=== PATIENT | female | born 1965 | race Caucasian/White ===

== ENCOUNTER 2019-11-23 19:22 | Inpatient (IN) | payer OTHER ==
[~2019-11-23] VITALS: Ht 165.1 cm; Wt 101.9 kg
[2019-11-23] MEDS ORDERED: WARF10 PO (19:47)
[2019-11-23] MEDS ORDERED: WARF1 PO (19:48)
[2019-11-23 20:20] LABS: BASOPHILS ABSOLUTE AUTO 0.03 K/mm3 (0.00-0.23); BASOPHILS PERCENT AUTO 0 % (0-2); EOSINOPHILS PERCENT AUTO 3 % (0-6); Hematocrit 36.6 % (33.0-51.0); Hemoglobin 12.1 g/dL (11.5-16.0); IMMATURE GRAN ABSOLUTE AUTO 0.02 K/mm3 (0.00-0.10); IMMATURE GRAN PERCENT AUTO 0 % (0-1); LYMPHOCYTES ABSOLUTE AUTO 1.46 K/mm3 (0.84-5.20); LYMPHOCYTES PERCENT AUTO 19 % (21-46); MONOCYTES ABSOLUTE AUTO 0.37 K/mm3 (0.16-1.47); MONOCYTES PERCENT AUTO 5 % (4-13); Mean Corpuscular HGB 28.4 pg (26.0-34.0); Mean Corpuscular HGB Conc 33.1 g/dL (31.5-36.5); Mean Corpuscular Volume 86 fL (80-100); Mean Platelet Volume 11.6 fL (9.1-12.4); NEUTROPHILS ABSOLUTE AUTO 5.48 K/mm3 (1.96-9.15); NEUTROPHILS PERCENT AUTO 73 % (41-73); Platelet Count 240 K/mm3 (150-400); RDW Coefficient Variation 13.3 % (11.7-14.2); RDW Standard Deviation 42.5 fL (35.1-46.3); Red Blood Cell Count 4.26 M/mm3 (3.80-5.20); White Blood Cell Count 7.56 K/mm3 (4.00-11.30)
[2019-11-23 20:42] LABS: Alanine Aminotransfer (ALT/SGP 21 U/L (12-78); Albumin, Blood 3.1 g/dL (3.4-5.0); Albumin/Globulin Ratio 0.6 (0.8-1.8); Alk Phos 60 U/L (50-136); Anion Gap 8 mmol/L (6-16); Aspartate Aminotrans (AST/SGOT 18 U/L (12-37); Bilirubin, Total 0.5 mg/dL (0.1-1.0); Blood Urea Nitrogen 17 mg/dL (8-24); Bun/Creatinine Ratio 22.3 (12.0-20.0); CO2, Blood 23 mmol/L (21-32); Calcium, Blood 9.5 mg/dL (8.5-10.1); Chloride, Blood 108 mmol/L (98-108); Creatinine, Blood 0.76 mg/dL (0.40-1.00); Globulin, Blood 5.2 g/dL (2.2-4.0); Glomerular Filtration Rate >60 (60-); Glucose, Blood 117 mg/dL (70-99); Potassium, Blood 3.9 mmol/L (3.5-5.5); Sodium, Blood 139 mmol/L (136-145); Total Protein, Blood 8.3 g/dL (6.4-8.2)
[2019-11-23 21:54] LABS: International Normalized Ratio 5.8; Prothrombin Time Results 56.2 Sec (9.7-11.5)
--- NOTE | 2019-11-24 00:31 | NUR ---
0010 PT ADMITTED TO ROOM 332 PER CART FROM ER; PT ASSISTED INTO BED VIA SLIDER SHEET X 4 ASSIST; PHOTO CONSENT OBTAINED WITH PICTURE TAKEN RIGHT KNEE.
--- NOTE | 2019-11-24 04:08 | NUR ---
SHIFT SUMMARY: 54 Y/O FEMALE RESTED COMFORTABLY AFTER RECEIVING DILAUDID 1MG IVP FOR RIGHT KNEE PATIENT; PT HAS PENDING ORTHO CONSULT TODAY VIA DR EDY BRISCOE REGARDING HEMATOMA; PT HAS AM LABS SCHEDULED FOR REPEAT PT/INR LEVELS; DENIES CHEST PAIN OR NAUSEA; BED LOW POSITION WITH CALL LIGHT AT SIDE.
[2019-11-24 06:09] LABS: International Normalized Ratio 5.56
--- NOTE | 2019-11-24 17:28 | NUR ---
SHIFT SUMMARY PT IS AOX4, PT IS VERY PAINFUL TODAY, AND I MEDICATED HER WITH THE DILAUDID 0.5MG. PT STATED THAT 1MG OF DILAUDID MADE HER FEEL BAD AND WEIRD. PT C/O OF NAUSEA THIS MORNING, AND MEDICATED HER ZOFRAN; PT TOLERATED WELL. NO C/O SOB OR CP; BED IS IN THE LOWEST POSITION, CALL LIGHTS WITHIN REACH, AND WILL CONTINUE TO MONITOR UNTIL THE NEXT SHIFT.
--- NOTE | 2019-11-25 04:28 | NUR ---
SHIFT SUMMARY ASSUMED CARE OF PT AT 1900. PT IS A/OX4, DENIES N/T IN EXTREMITES. HEART SOUNDS REGULAR, LUNG SOUNDS CLEAR, DENIES CP/SOB. PT HAS BEEN CONTINENT T/O THE NIGHT. PT HAS BEEN C/O PAIN IN HER R KNEE. THE KNEE IS SWOLLEN, WARM TO TOUCH AND PER PERIPHERAL PULSE IS WEAK. PT REQUEST PAIN MEDICATION Q2 UNTIL SHE FELL ASLEEP. PT WAS CONCERNED ABOUT TALKING OXYCODONE FOR PAIN DUE TO HAVE ADDICTIVE PROPERTIES. PT WAS EDUCATED AND AGREED TO TAKE THEM TO COVER HER PAIN LONGER, THIS WAS THEN PT WAS ABLE TO SLEEP. PT IS VERY UPSET ABOUT BEING HERE IN THE HOSPITAL SAYING THAT SHE WISHED SHE WAS HOME. CALL LIGHT IN REACH, BED IN LOWEST POSTION.
[2019-11-25 08:14] LABS: International Normalized Ratio 3.83
--- NOTE | 2019-11-25 12:10 | NUR ---
OXYCODONE & MILK OF MAG ADMIN ORIGINAL DOSAGE NOT SUBMITTED. ADMIN TIME BACKTIMED IN EMAR.
--- NOTE | 2019-11-25 12:14 | NUR ---
UNCONTROLLED PAIN. PT EXPERIENCING UNCONTROLLED PAIN FROM R KNEE HEMATOMA. PT PREVIOUSLY MEDICATED PER EMAR, BUT IN SIGNIFICANT PAIN AFTER TOILETING. PT MOANING AND CRYING IN ROOM. ICE REAPPLIED TO KNEE. DR. BENSON CALLED & NOTIFIED. DR. BENSON INSTRUCTED TO CONTAL ORTHO SYSTEM SPECIALIST. MESSAGE LEFT WITH ANSWERING SERVICE FOR DR. FLORES WHO IS SYSTEM SPECIALIST TODAY. AWAITNG CALL BACK.
--- NOTE | 2019-11-25 12:22 | NUR ---
INFOR FORWARDED TO DR. RACHNA FLORES CALLED BACK AND IS FORWARDING INFO ABOUT PT UNCONTROLLED PAIN TO DR. BRISCOE. DR. BENSON NOTIFIED OF PT UNCONTROLLED PAIN. PT CONTINUES TO MOAN IN ROOM, STATING "I CAN'T TAKE THIS FOR MUCH LONGER"
--- NOTE | 2019-11-25 13:00 | NUR ---
PULSES INTACT THIS RN CONCERNED ABOUT BLOOD FLOW TO R LEG DUE TO SWELLING FROM R KNEE. PEDAL PULSES FELT BY EZEKIEL GARCIA RN. TIBIAL PULSES FELT AND HEARD IN DOPPLER. CAP REFIL INTACT. FEET COOL BILATERALLY, PT HAS NO SOCKS ON.
--- NOTE | 2019-11-25 13:37 | NUR ---
PAIN IMPROVED PT STATES HER PAIN HAS IMPROVED AFTER LYING DOWN FOR APPROX AN HOUR AFTER TOILETING. PT GOT UP TO TOILET EARLIER IN THE SHIFT, TRIGGERING HER PAIN TO INCREASE SIGNIFICANTLY. PT GIVE PAIN MEDS AT THAT TIME. ICE APPLICATION IN USE WITH BREAKS INBETWEEN. PT HAS LEG ELEVATED ON PILLOWS. SLEEPING. NO PAIN MEDS ADMINISTERED SINCE EVENT. PT DOZING OFF, BUT ARROUSABLE TO VERBAL STIMULI. AWAITING INSTRUCTIONS FROM DR. BRISCOE. PULSES IN FEET INTACT. CAP REFIL GOOD. WARM BLANKETS APPLIED TO PT FOR COMFORT.
--- NOTE | 2019-11-25 15:00 | NUR ---
DR. BRISCOE CALLED BACK INSTRUCTED TO TRY A POLAR PACK FOR COOL APPLICATION INSTEAD OF ICE AND TO HELP WITH PT COMFORT. STATES SHE WILL BE IN TO SEE PT A LITTLE LATER TODAY TO EVALUATE PT LEG.
--- NOTE | 2019-11-25 17:45 | NUR ---
SHIFT SUMMARY SEE PREVIOUS NOTES. PT EDUCATED ON NOT AMBULATING UNTIL HER KNEE STARTS TO DECREASE IN SWELLING IT WAS LIKELY THE CAUSE OF HER SIGNIFICANT DISCOMFORT. POLAR PACK IN PLACE WITH BARRIER ON SKIN. PT STATES PAIN IS MORE MANAGED AND SKIN FEELS LESS TIGHT WITH THE USE OF THIS. DR. BRISCOE IN TO SEE PT THIS AFTERNOON AND PLEASED WITH RESULTS OF POLAR PACK. 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 PT REQUIRED LESS PAIN MEDICATION THIS AFTERNOON ONCE POLAR PACK WAS APPLIED. VS REVIEWED. NO OTHER CHANGES IN ASSESSMENT AT THIS TIME.
[2019-11-26 04:39] LABS: Hematocrit 34.6 % (33.0-51.0); Mean Corpuscular HGB 27.9 pg (26.0-34.0); Mean Corpuscular HGB Conc 31.8 g/dL (31.5-36.5); Mean Corpuscular Volume 88 fL (80-100); Mean Platelet Volume 11.8 fL (9.1-12.4); Platelet Count 240 K/mm3 (150-400); RDW Coefficient Variation 13.2 % (11.7-14.2); Red Blood Cell Count 3.94 M/mm3 (3.80-5.20); White Blood Cell Count 8.47 K/mm3 (4.00-11.30)
[2019-11-26 04:52] LABS: International Normalized Ratio 2.21; Prothrombin Time Results 22.6 Sec (9.7-11.5)
--- NOTE | 2019-11-26 05:28 | NUR ---
SUMMARY PT HAD SOME EPISODES OF INCREASED KNEE PAIN. PT TX PER EMAR W/ GOOD EFFECT. PT SHOWERED THIS SHIFT AND WALKED FLOOR FOR SHORT PERIOD. PT CURRENTLY AWAKE AND NO DISTRESS. CALL LIGHT IN REACH.
[2019-11-26] MEDS ORDERED: OXAYDO5 MG PO (14:01)
--- NOTE | 2019-11-26 15:07 | NUR ---
DISCHARGED PT DISCHARGED AT 1505. PT PAIN LEVEL AND SWELLING OF R KNEE IMPROVED T/O SHIFT. PT TOLERATED AMBULATION TO BATHROOM. NEW PATIENT PACKETS SENT WITH PT AND INSTRUCTIONS ON HOW TO FOLLOW UP DISCUSSED. NEW MED, MED CHANGES, AND FOLLOW UP INSTRUCTIONS DISCUSSED WITH PT. PT BELONGINGS FROM SECURITY GIVEN BACK TO HER. PT EDUCATED ON THE SIGNS AND RISKS OF CONSITIPATION AND NARCOTICS. HARD SCRIPT SENT WITH PT FOR OXYCODONE. TAXI CALLED FOR PT AND DC VOLUNTEER ESCORTED PT OUT OF BUILDING. PT SENT WITH POLAR PACK AND INSTRUCTED ON ITS USE. PT DENIED NEED FOR FURTHER INSTRUCTION PRIOR TO DC.
== END 2019-11-26 15:06 | disposition home or self-care (01) | DRG 605 ==
LOC: ER 19:22 → MEDS 19:23 → ENPENDDIS 11-26 13:59 → MEDS 11-26 15:06
PROVIDERS: Internal Medicine; Physician Assistant; ADMIT Internal Medicine
DX: S80.01XA Contusion of right knee, initial encounter (principal); W19.XXXA Unspecified fall, initial encounter; F17.210 Nicotine dependence, cigarettes, uncomplicated; Z86.718 Personal history of other venous thrombosis and embolism; Z79.01 Long term (current) use of anticoagulants
CPT/HCPCS: 36415; 80053; 85025; 85027; 85610; 93926; 96374; 96375; 96376; 99284-25; G0378; J1170; J1885; J2405

== ENCOUNTER → 2019-12-03 | Outpatient (CLI) | payer OTHER ==
[~2019-12-03] MED LIST: OXAYDO5 MG PO; WARF1 PO; WARF10 PO
[2019-12-03 20:15] LABS: International Normalized Ratio 1.56; Prothrombin Time Results 16.3 Sec (9.7-11.5)
== END | disposition home or self-care (01) ==
LOC: LAB SHORT 17:24 → LAB EV 17:24
PROVIDERS: Family Medicine
DX: Z79.01 Long term (current) use of anticoagulants (principal); Z51.81 Encounter for therapeutic drug level monitoring
CPT/HCPCS: 85610

== ENCOUNTER → 2019-12-17 | Outpatient (CLI) | payer OTHER ==
[2019-12-17 17:19] LABS: International Normalized Ratio 1.78; Prothrombin Time Results 18.4 Sec (9.7-11.5)
== END | disposition home or self-care (01) ==
LOC: LAB EV 11:36 → LAB SHORT 11:36
PROVIDERS: Family Medicine
DX: Z79.01 Long term (current) use of anticoagulants (principal); Z51.81 Encounter for therapeutic drug level monitoring
CPT/HCPCS: 85610

== ENCOUNTER 2020-02-29 13:02 | Emergency (ER) | payer OTHER ==
[~2020-02-29] VITALS: Ht 165.1 cm; Wt 106.6 kg
[2020-02-29 13:37] LABS: Source, Urine Clean Catch
[2020-02-29 13:40] LABS: Appearance, Urine Cloudy (Clear); Bilirubin, Urine Neg (Neg); Blood, Urine 5+ (Neg); Color, Urine Brown (P-Yellow); Glucose Qualitative, Urine Neg (Neg); Ketones, Urine Neg (Neg); Leukocyte Esterase, Urine 1+ (Neg); Nitrite, Urine Neg (Neg); Protein, Urine 2+ (Neg); Urobilinogen, Urine NORM (Normal)
[2020-02-29 13:42] LABS: BASOPHILS ABSOLUTE AUTO 0.03 K/mm3 (0.00-0.23); BASOPHILS PERCENT AUTO 1 % (0-2); EOSINOPHILS PERCENT AUTO 5 % (0-6); Hematocrit 41.5 % (33.0-51.0); Hemoglobin 12.9 g/dL (11.5-16.0); IMMATURE GRAN ABSOLUTE AUTO 0.02 K/mm3 (0.00-0.10); IMMATURE GRAN PERCENT AUTO 0 % (0-1); LYMPHOCYTES ABSOLUTE AUTO 1.92 K/mm3 (0.84-5.20); LYMPHOCYTES PERCENT AUTO 35 % (21-46); MONOCYTES ABSOLUTE AUTO 0.29 K/mm3 (0.16-1.47); MONOCYTES PERCENT AUTO 5 % (4-13); Mean Corpuscular HGB 26.7 pg (26.0-34.0); Mean Corpuscular HGB Conc 31.1 g/dL (31.5-36.5); Mean Corpuscular Volume 86 fL (80-100); Mean Platelet Volume 11.6 fL (9.1-12.4); NEUTROPHILS ABSOLUTE AUTO 2.99 K/mm3 (1.96-9.15); NEUTROPHILS PERCENT AUTO 54 % (41-73); Platelet Count 207 K/mm3 (150-400); RDW Coefficient Variation 14.3 % (11.7-14.2); RDW Standard Deviation 45.1 fL (35.1-46.3); Red Blood Cell Count 4.84 M/mm3 (3.80-5.20); White Blood Cell Count 5.55 K/mm3 (4.00-11.30)
[2020-02-29 13:56] LABS: Bacteria Few /hpf; Red Blood Cells, Urine TNTC /hpf (0-2); Squamous Epithelial Cells Few /hpf (Few); White Blood Cells, Urine 0-2 /hpf (0-5)
[2020-02-29] MEDS ORDERED: Coumadin5 MG PO (13:56)
[2020-02-29] MEDS ORDERED: WARF10 PO (13:57)
[2020-02-29 13:59] LABS: Alanine Aminotransfer (ALT/SGP 24 U/L (12-78); Albumin, Blood 3.1 g/dL (3.4-5.0); Albumin/Globulin Ratio 0.6 (0.8-1.8); Alk Phos 58 U/L (50-136); Anion Gap 4 mmol/L (6-16); Aspartate Aminotrans (AST/SGOT 17 U/L (12-37); Bilirubin, Total 0.4 mg/dL (0.1-1.0); Blood Urea Nitrogen 17 mg/dL (8-24); Bun/Creatinine Ratio 22.1 (12.0-20.0); CO2, Blood 29 mmol/L (21-32); Calcium, Blood 8.9 mg/dL (8.5-10.1); Chloride, Blood 107 mmol/L (98-108); Creatinine, Blood 0.77 mg/dL (0.40-1.00); Globulin, Blood 5.3 g/dL (2.2-4.0); Glomerular Filtration Rate >60 (60-); Glucose, Blood 92 mg/dL (70-99); Potassium, Blood 3.6 mmol/L (3.5-5.5); Sodium, Blood 140 mmol/L (136-145); Total Protein, Blood 8.4 g/dL (6.4-8.2)
[2020-02-29 15:33] LABS: International Normalized Ratio 3.74; Prothrombin Time Results 37.1 Sec (9.7-11.5)
[2020-02-29] MEDS ORDERED: Roxicodone5 MG PO (15:45)
== END 2020-02-29 16:00 | disposition home or self-care (01) ==
LOC: ER 13:02
PROVIDERS: Emergency Medicine
DX: N20.0 Calculus of kidney (principal); R79.1 Abnormal coagulation profile; F17.200 Nicotine dependence, unspecified, uncomplicated; Z86.718 Personal history of other venous thrombosis and embolism; Z79.01 Long term (current) use of anticoagulants
CPT/HCPCS: 36415; 74176; 80053; 81001; 85025; 85610; 86850; 86900; 86901; 87086; 96374; 99284-25; J2270

== ENCOUNTER 2021-10-15 20:32 | Emergency (ER) | payer OTHER ==
[~2021-10-15] VITALS: Ht 165.1 cm; Wt 99.8 kg
[~2021-10-15 20:32] MED LIST changes: +Coumadin5 MG PO; +Ketoconazole120 ML; +LINZESS145 MCG PO; +Norco 5-325 Ta1 EACH PO; +OMEP20ER PO; +Roxicodone5 MG PO; +SERT25 PO; +WARF5 PO
== END 2021-10-15 23:48 | disposition home or self-care (01) ==
LOC: ER 20:32
DX: M79.661 Pain in right lower leg (principal); Z86.718 Personal history of other venous thrombosis and embolism; Z86.711 Personal history of pulmonary embolism; Z79.899 Other long term (current) drug therapy; Z79.01 Long term (current) use of anticoagulants
CPT/HCPCS: 93971

== ENCOUNTER → 2023-11-09 | Outpatient (CLI) | payer OTHER ==
[~2023-11-09] MED LIST changes: +ADULT GLYCERIN1 EACH PR; +CEFP200 PO; +CONSTULOSE10 GM/155 PO; +DOCU100 PO; +METO10 PO
== END ==
LOC: LAB 18:39 → LAB SHORT 18:39
DX: R30.0 Dysuria (principal)
CPT/HCPCS: 87086